=== PATIENT | female | born 1980 | race Caucasian/White ===

== ENCOUNTER 2019-09-08 11:09 | Emergency (ER) | payer SELFPAY | END 2019-09-08 11:42 | disposition home or self-care (01) | LOC: BURERS 11:09 | DX: J06.9 Acute upper respiratory infection, unspecified (principal); H66.90 Otitis media, unspecified, unspecified ear; J45.909 Unspecified asthma, uncomplicated; M79.7 Fibromyalgia; F43.10 Post-traumatic stress disorder, unspecified; Z79.01 Long term (current) use of anticoagulants; Z79.899 Other long term (current) drug therapy | CPT/HCPCS: 99283 ==

== ENCOUNTER 2022-09-26 21:15 | Emergency (ER) | payer SELFPAY ==
[2022-09-26] MEDS ORDERED: Ondansetron PF 4 MG/2 ML Vial ONE (21:38)
[2022-09-26] MEDS ORDERED: methylPREDNISolone Sod Succ/PF 125 MG/2 ML VIAL ONE (21:48)
[2022-09-26] MEDS ORDERED: Prochlorperazine 10 MG/2 ML VIAL ONE (21:49)
[2022-09-26] MEDS ORDERED: diphenhydrAMINE 50 MG/ML VIAL ONE (21:49)
== END 2022-09-26 22:11 | disposition home or self-care (01) ==
LOC: BURERS 21:15
DX: G43.909 Migraine, unspecified, not intractable, without status migrainosus (principal)
CPT/HCPCS: 96374; 96375; J0780; J1200; J2405; J2930

== ENCOUNTER 2022-10-03 13:40 | Emergency (ER) | payer MEDICAID, OTHER, SELFPAY ==
[~2022-10-03 13:40] MED LIST: Iopamidol 370 76% 100 ML VIAL ONE
[2022-10-03 14:00] LABS: #Basophils 0.1 thou/uL (0.0-0.2); #Eosinphils 0.1 thou/uL (0.0-0.7); #Monocytes 0.5 thou/uL (0.11-0.59); #Neutrophils 3.8 thou/uL (1.40-6.50); %Basophils 1.3 % (0.0-1.0); %Eosinophils 1.7 % (0.0-10.0); %Lymphocytes 30.8 % (21.0-51.0); %Monocytes 7.5 % (0.0-10.0); %Neutrophils 58.7 % (42.0-75.0); Hemoglobin 13.2 g/dL (12.0-16.0); Mean Corpuscular HGB CONC 31.5 g/dL (32.0-36.0); Mean Corpuscular Hemoglobin 28.3 pg (27.0-31.0); Mean Corpuscular Volume 89.7 fl (78.0-98.0); Mean Platelet Volume 7.7 fL (7.4-10.4); Platelet Count 199 10x3/uL (130-400); RBC Distribution Width 12.1 % (11.5-14.5); Red Blood Cell (RBC) Count 4.65 mill/uL (4.20-5.40); White Blood Cell (WBC) Count 6.5 10x3/uL (4.8-10.8)
[2022-10-03 14:09] LABS: INR-International Normal Ratio 1.1; Prothrombin Time 14.1 sec (12.0-14.7)
[2022-10-03 14:17] LABS: ALT (SGPT) 32 U/L (8-55); AST (SGOT) 23 U/L (5-34); Albumin 4.4 g/dL (3.5-5.0); Alkaline Phosphatase 85 U/L (40-110); Anion Gap 13 mmol/L (10-20); BUN (Urea Nitrogen) 18 mg/dL (7.0-18.7); Bilirubin, Total 0.7 mg/dL (0.2-1.2); Calc. Creatinine Clearance 0 mL/min (70-130); Calcium 9.8 mg/dL (7.8-10.44); Carbon Dioxide 26 mmol/L (22-29); Chloride 104 mmol/L (98-107); Estimated GFR 88; Globulin 3.5 g/dL (2.4-3.5); Glucose 90 mg/dL (70-105); Protein, Total 7.9 g/dL (6.0-8.3); Sodium 139 mmol/L (136-145)
[2022-10-03] MEDS ORDERED: Ondansetron PF 4 MG/2 ML Vial ONE (15:02)
[2022-10-03] MEDS ORDERED: Morphine 4 MG/ML VIAL ONE ×3 (15:02→22:16)
[2022-10-03] MEDS ORDERED: Promethazine HCl 25 MG/ML VIAL ONE (18:33)
[2022-10-03] MEDS ORDERED: Morphine 2 MG/ML VIAL ONE (18:33)
[2022-10-03 20:18] LABS: Troponin I Less than 0.010 ng/mL (< 0.028)
[2022-10-03] MEDS ORDERED: tiZANidine HCl 4 MG TAB PO SCH (22:30)
[2022-10-03 23:29] LABS: Troponin I Less than 0.010 ng/mL (< 0.028)
== END 2022-10-03 23:37 | disposition home or self-care (01) ==
LOC: BURERS 13:40
DX: G45.9 Transient cerebral ischemic attack, unspecified (principal); R29.710 NIHSS score 10; Z79.01 Long term (current) use of anticoagulants
CPT/HCPCS: 36416; 70450; 70496; 70498; 80053; 84484; 85025; 85610; 93005; 96374; 96375; 96376; 36415-59; J2270; J2272; J2405; J2550; Q9967